=== PATIENT | female | born 1995 | race Hispanic/Latino ===

== ENCOUNTER 2018-04-25 15:40 | Emergency (ER) | payer BC, OTHER | END 2018-04-25 15:59 | disposition home or self-care (01) | LOC: BURERS 15:40 | DX: S92.501A Displaced unspecified fracture of right lesser toe(s), initial encounter for closed fracture (principal); F32.9 Major depressive disorder, single episode, unspecified; F41.9 Anxiety disorder, unspecified; W20.8XXA Other cause of strike by thrown, projected or falling object, initial encounter | CPT/HCPCS: 99283 ==

== ENCOUNTER 2018-09-30 13:57 | Emergency (ER) | payer OTHER ==
[2018-09-30] MEDS ORDERED: Ketorolac Tromethamine 60 MG/2 ML VIAL ONE (14:17)
[2018-09-30] MEDS ORDERED: Cyclobenzaprine 10 MG TAB ONE (14:18)
== END 2018-09-30 14:30 | disposition home or self-care (01) ==
LOC: BURERS 13:57
DX: M62.838 Other muscle spasm (principal); F41.9 Anxiety disorder, unspecified; F32.9 Major depressive disorder, single episode, unspecified
CPT/HCPCS: 96372; J1885

== ENCOUNTER 2023-04-02 13:41 | Emergency (ER) | payer OTHER, SELFPAY ==
[2023-04-02] MEDS ORDERED: Ketorolac Tromethamine 60 MG/2 ML VIAL ONE (14:09)
== END 2023-04-02 14:17 | disposition home or self-care (01) ==
LOC: BURERS 13:41
DX: M54.50 Low back pain, unspecified (principal)
CPT/HCPCS: 96372; 99283; J1885